=== PATIENT | female | born 1990 | race Caucasian/White ===

== ENCOUNTER 2020-08-28 15:44 | Emergency (ER) | payer BC, SELFPAY ==
--- NOTE | 2020-08-28 16:26 | RAD ---
XR Knee Lt 4 View STANDARD History: Dislocation with pain Comparison: None. Findings: Small joint effusion. No acute displaced fracture or malalignment. No acute osseous abnorma lity. Impression: No acute osseous abnormality.
== END 2020-08-28 18:12 | disposition home or self-care (01) ==
LOC: ERS 15:44
DX: M25.562 Pain in left knee (principal)